=== PATIENT | female | born 1995 | race Caucasian/White ===

== ENCOUNTER 2017-02-10 08:54 | Emergency (ER) | payer OTHER ==
[~2017-02-10] VITALS: Ht 162.6 cm; Wt 85.5 kg
[~2017-02-10 08:54] MED LIST: BACTRIM,SEPT1 TABLET PO; BIRTH CONTROLL; FLOMAX0.4 MG PO; LORTAB 5-325 M1 EACH PO; MILK OF MAGN PO; NAPROSYN500 MG PO; PERCOCET 5/31 TABLET PO; PROZAC40 MG PO; TOPAMAX50 MG PO; TORADOL10 MG PO; TRINESSA1 EACH PO; WELLBUTRIN XL150 MG PO; ZOFRAN ODT4 MG PO; ZOFRAN4 MG PO
[2017-02-10 09:40] LABS: HEMATOCRIT 40.2 % (36.0-46.0); MCH 28.6 PG (29.0-34.0); MCHC 32.8 G/DL (30.0-36.0); MEAN PLAT.VOLUME 10.5 uM^3 (9.5-12.4); PLATELET COUNT 220 K/uL (156-360); RBC DIS.WIDTH-CV 12.5 % (11.8-14.6); RBC DIS.WIDTH-SD 39.5 % (39-53); RED BLOOD COUNT 4.62 M/uL (3.80-5.20)
[2017-02-10 09:48] LABS: CHLORIDE 109 mEq/L (99-109); POTASSIUM 4.1 mEq/L (3.7-5.4); SODIUM 138 mEq/L (136-147)
[2017-02-10 09:50] LABS: GLUCOSE 92 mg/dL (70-99)
[2017-02-10 09:51] LABS: ANION GAP 7 MEQ/L (2-14)
[2017-02-10 09:52] LABS: TOTAL BILIRUBIN 0.3 mg/dL (0.0-1.0)
[2017-02-10 09:54] LABS: ALKALINE PHOSPHATASE 85 IU/L (3-129); GFR ESTIMATE (CALCULATED) > 59 mL/min/
[2017-02-10 09:55] LABS: UREA NITROGEN (BUN) 11 mg/dL (9-23)
[2017-02-10 09:57] LABS: LIPASE 17 U/L (1.0-51.0)
[2017-02-10 10:05] LABS: QUANTITATIVE HCG < 4.0 MIU/ML
[2017-02-10] MEDS ORDERED: BENTYL10 MG PO (11:05)
[2017-02-10] MEDS ORDERED: ZOFRAN ODT4 MG PO (11:05)
[2017-02-10 11:43] LABS: ADD MIUA? YES; BILIRUBIN NEGATIVE; BLOOD SMALL; COLOR YELLOW ((YELLOW)); GLUCOSE (STRIP) NEGATIVE; KETONES NEGATIVE; LEUKOCYTES TRACE; NITRITE NEGATIVE; PROTEIN (STRIP) NEGATIVE; SPECIFIC GRAVITY 1.012 (1.000-1.030); UROBILINOGEN 0.2 MG/DL (0.2-1.0)
[2017-02-10 11:56] LABS: BACTERIA 1+ /HPF; CALCIUM OXALATE CRYSTALS 2+ /HPF; EPITHELIAL CELLS RARE /HPF; MUCUS TRACE /LPF; RED BLOOD CELLS 0-5 /HPF (0-5); WHITE BLOOD CELLS 0-5 /HPF (0-5)
[2017-02-10] MEDS ORDERED: BACTRIM,SEPT1 TABLET PO (12:03)
[2017-02-10 12:23] VITALS: BP 111/79
== END 2017-02-10 12:25 | disposition home or self-care (01) ==
LOC: EME 08:54
PROVIDERS: Nurse Practitioner Family
DX: R10.11 Right upper quadrant pain (principal); N39.0 Urinary tract infection, site not specified; R50.9 Fever, unspecified; R11.0 Nausea
CPT/HCPCS: 74177; 80053; 81003; 83690; 84702; 85027; 99281; 99284; J1885; J2270; J2405; J7030

== ENCOUNTER → 2017-04-27 | Outpatient (CLI) | payer OTHER ==
[~2017-04-27] MED LIST changes: +BENTYL10 MG PO
== END | disposition home or self-care (01) ==
LOC: NUC 12:20
DX: K82.9 Disease of gallbladder, unspecified (principal)
CPT/HCPCS: 78227; A9537; J2805

== ENCOUNTER 2017-08-08 17:52 | Emergency (ER) | payer OTHER ==
[~2017-08-08] VITALS: Ht 162.6 cm; Wt 85.0 kg
[2017-08-08 17:30] LABS: MCH 29.9 PG (29.0-34.0); MCHC 34.4 G/DL (30.0-36.0); MCV 86.9 FL (83-99); MEAN PLAT.VOLUME 10.4 uM^3 (9.5-12.4); PLATELET COUNT 239 K/uL (156-360); RBC DIS.WIDTH-CV 12.2 % (11.8-14.6); RBC DIS.WIDTH-SD 38.8 % (39-53); RED BLOOD COUNT 4.72 M/uL (3.80-5.20); WHITE BLOOD COUNT 10.9 K/uL (4.1-10.2)
[2017-08-08 17:38] LABS: CHLORIDE 108 mEq/L (99-109); POTASSIUM 4.9 mEq/L (3.7-5.4); SODIUM 138 mEq/L (136-147)
[2017-08-08 17:40] LABS: GLUCOSE 109 mg/dL (70-99)
[2017-08-08 17:41] LABS: ANION GAP 8 MEQ/L (2-14)
[2017-08-08 17:44] LABS: GFR ESTIMATE (CALCULATED) 49 mL/min/
[2017-08-08 17:45] LABS: UREA NITROGEN (BUN) 17 mg/dL (9-23)
[2017-08-08 17:52] LABS: QUANTITATIVE HCG < 4.0 MIU/ML
[2017-08-08 18:11] LABS: TOTAL BILIRUBIN 0.3 mg/dL (0.0-1.0)
[2017-08-08 18:13] LABS: ALKALINE PHOSPHATASE 102 IU/L (3-129)
[2017-08-08 18:15] LABS: DIRECT BILIRUBIN 0.1 mg/dL (0.0-0.3)
[2017-08-08 18:15] LABS: ADD MIUA? YES; BILIRUBIN NEGATIVE; BLOOD SMALL; COLOR YELLOW ((YELLOW)); GLUCOSE (STRIP) NEGATIVE; KETONES NEGATIVE; LEUKOCYTES TRACE; NITRITE NEGATIVE; PROTEIN (STRIP) NEGATIVE; SPECIFIC GRAVITY 1.021 (1.000-1.030); UROBILINOGEN 0.2 MG/DL (0.2-1.0)
[2017-08-08 18:16] LABS: LIPASE 15 U/L (1.0-51.0)
[2017-08-08 18:23] LABS: BACTERIA RARE /HPF; EPITHELIAL CELLS RARE /HPF; MUCUS TRACE /LPF; RED BLOOD CELLS 15-20 /HPF (0-5); UCUL ADDED? NO; WHITE BLOOD CELLS 0-5 /HPF (0-5)
[2017-08-08] MEDS ORDERED: ZOFRAN ODT4 MG PO (21:25)
[2017-08-08] MEDS ORDERED: FLOMAX0.4 MG PO (21:25)
[2017-08-08] MEDS ORDERED: MOTRIN600 MG PO (21:25)
[2017-08-08] MEDS ORDERED: NORCO 7.5/321 TABLET PO (21:25)
[2017-08-08 23:07] VITALS: BP 124/78
== END 2017-08-08 23:09 | disposition home or self-care (01) ==
LOC: EME 17:52
DX: N13.2 Hydronephrosis with renal and ureteral calculous obstruction (principal); R03.0 Elevated blood-pressure reading, without diagnosis of hypertension; N28.9 Disorder of kidney and ureter, unspecified; Z87.442 Personal history of urinary calculi
CPT/HCPCS: 74176; 80048; 80076; 81003; 83690; 84702; 85027; 87086; 99281; 99285; J1885; J3010; J7030